=== PATIENT | female | born 1985 | race Two or more races ===

== ENCOUNTER 2020-12-13 06:00 | Day surgery (SDC) | payer OTHER | END 2020-12-13 14:15 | disposition home or self-care (01) | LOC: CIR.AMB 06:00 | PROVIDERS: ATTEND Obstetrics & Gynecology | DX: N84.0 Polyp of corpus uteri (principal); Z30.433 Encounter for removal and reinsertion of intrauterine contraceptive device; Z20.822 Contact with and (suspected) exposure to COVID-19 ==